=== PATIENT | male | born 1965 | race Caucasian/White ===

== ENCOUNTER 2017-08-11 10:43 | Emergency (ER) | payer OTHER ==
[2017-08-11 12:30] LABS: BILIRUBIN NEGATIVE (NEGATIVE); BLOOD 3+ Ery/uL (NEGATIVE); CLARITY CLEAR (CLEAR); COLOR YELLOW (YELLOW); GLUCOSE (U) NORMAL (NORMAL); KETONE (U) NEGATIVE (NEGATIVE); LEUKOCYTES NEGATIVE Leu/uL (NEGATIVE); NITRITE NEGATIVE (NEGATIVE); PROTEIN 1+ mg/dL (NEGATIVE); pH 6.5 (5.0-9.0)
[2017-08-11 12:31] LABS: BASOPHIL 0.1 % (0-2); EOSINOPHIL 0 % (0-5); HCT 41.4 % (42.0-52.0); HGB 14.2 g/dl (13.2-18.0); LYMPHOCYTE 12.5 % (15-48); MCH 28.6 pg (25.0-31.0); MCHC 34.3 g/dL (32.0-36.0); MCV 83.5 fL (78.0-100.0); MPV 10.6 fL (6.0-9.5); NEUTROPHIL 80.4 % (41-80); PLT 384 K/uL (150-400); RBC 4.96 M/uL (4.70-6.00); RDW 13.2 % (11.5-14.0); WBC 12.7 K/uL (4.0-10.5)
[2017-08-11 12:41] LABS: URINARY WBC RARE
[2017-08-11 12:42] LABS: SQUAMOUS EPITHELIAL CELLS RARE
[2017-08-11 12:48] LABS: LACTIC ACID 0.7 mmol/L (0.5-2.2)
[2017-08-11 12:49] LABS: C-REACTIVE PROTEIN 0.3 mg/dL (0.00-0.50); TROPONIN T 0.295 ng/mL
[2017-08-11 12:50] LABS: ALBUMIN 3.4 g/dL (3.5-5.0); BILIRUBIN - TOTAL 0.3 mg/dL (0.1-1.0); CREATININE 0.4 mg/dL (0.7-1.2); GLOBULIN (CALCULATION) 3.6 g/dL (2.2-4.2); POTASSIUM 3.8 mmol/L (3.5-5.1)
[2017-08-11 12:57] LABS: FT4 (FREE T4) 1.13 ng/dL (0.93-1.70); TSH (THYROID STIM HORMONE) 2.25 uIU/mL (0.270-4.200)
== END 2017-08-11 16:54 | disposition other institution (70) ==
LOC: FER 10:43
PROVIDERS: Physician Assistant
DX: R53.1 Weakness (principal); R31.9 Hematuria, unspecified; M60.9 Myositis, unspecified; L30.9 Dermatitis, unspecified; R79.89 Other specified abnormal findings of blood chemistry; E78.5 Hyperlipidemia, unspecified; I10 Essential (primary) hypertension; Z87.2 Personal history of diseases of the skin and subcutaneous tissue; Z88.1 Allergy status to other antibiotic agents; Z79.899 Other long term (current) drug therapy
CPT/HCPCS: 36415; 80053; 81001; 82150; 82550; 83605; 83874; 84439; 84443; 84484; 85025; 85651; 86140; 87040; 93005; J2930